=== PATIENT | female | born 1990 | race Caucasian/White ===

== ENCOUNTER 2016-10-17 21:36 | Emergency (ER) | payer OTHER ==
[~2016-10-17 21:36] MED LIST: ALBUTEROL17 GM; FLOVENT7.9 GM; SINGULAIR
== END 2016-10-17 21:57 | disposition home or self-care (01) ==
LOC: SED 21:36
DX: K08.89 Other specified disorders of teeth and supporting structures (principal); R03.0 Elevated blood-pressure reading, without diagnosis of hypertension; J45.909 Unspecified asthma, uncomplicated; F17.200 Nicotine dependence, unspecified, uncomplicated
CPT/HCPCS: 99283